=== PATIENT | male | born 1985 | race Hispanic/Latino ===

== ENCOUNTER 2017-12-26 17:25 | Emergency (ER) | payer OTHER ==
[2017-12-26 17:38] VITALS: BP 148/85; PULSE 83; RESP 16; TEMP 98.1; O2SAT 99
--- NOTE | 2017-12-26 18:33 | ED PDOC ---
Upper Extremity Pain/Injury Time Seen by Provider: 12/26/17 17:47 Chief Complaint (Nursing): Upper Extremity Problem/Injury Chief Complaint (Provider): Upper Extremity Problem/Injury History Per: Patient History/Exam Limitations: no limitations Onset/Duration Of Symptoms: Hrs Current Symptoms Are (Timing): Still Present Additional Complaint(s): Everett Mcgarry is a 32 year old male with no past medical history who is presenting to the ER with complaints of left wrist pain, onset earlier today. Patient states that he is right hand dominant but was playing two games of baseball today and was throwing with his left hand. He states that he has not played in a while but used to play regularly. Patient denies any trauma, injury , joint pain, decreased range of motion, or any other medical complaints. PMD: none provided Past Medical History Reviewed: Historical Data, Nursing Documentation, Vital Signs Vital Signs: Last Vital Signs Temp 98.1 F 12/26/17 17:36 Pulse 83 12/26/17 17:36 Resp 16 12/26/17 17:36 BP 148/85 12/26/17 17:36 Pulse Ox 99 12/26/17 17:36 - Medical History PMH: No Chronic Diseases - Family History Family History: States: Unknown Family Hx - Social History Current smoker - smoking cessation education provided: No Drugs: Denies - Allergies Allergies/Adverse Reactions: Allergies Allergy/AdvReac Type Severity Reaction Status Date / Time No Known Allergies Allergy Verified 12/26/17 17:36 Review of Systems ROS Statement: Except As Marked, All Systems Reviewed And Found Negative Constitutional: Negative for: Other (trauma or injury) Musculoskeletal: Positive for: Arm Pain (wrist). Negative for: Other ( decreased range of motion) Physical Exam - Reviewed Nursing Documentation Reviewed: Yes Vital Signs Reviewed: Yes - Physical Exam Comments: GENERAL APPEARANCE: Patient is awake, alert, oriented x 3, in no acute distress. SKIN: Warm, dry; (-) cyanosis. WRIST: (+) Mild Tenderness to left wrist; pain elicited to flexion and extension, (-) swelling, (-) ecchymosis (-) deformity, (-) snuff-box tenderness. Elbow, hand and digits: (-) tenderness. (+) radial pulses 2+. NEURO AND PSYCH: Mental status as above. - ECG O2 Sat by Pulse Oximetry: 99 (RA) Pulse Ox Interpretation: Normal Medical Decision Making Medical Decision Making: Time: 17:50 Impression : Wrist sprain, consider overuse syndrome. Plan: --X-Ray Left Wrist XR left wrist: Minimal amount of soft tissue swelling noted, no fracture, no dislocation, as read by ANDREA Patient advised that official radiology read of XR is still pending and will call the patient if there is any discrepancy within 24 hours. X-ray results discussed with the patient in great detail. Diagnosis of wrist pain likely due to overuse syndrome discussed with the patient in great detail. Advised to rest, ice, elevate the wrist. Cock-up splint applied to the wrist. Advised to follow up with primary care physician in 1-2 days without fail. Advised to take [id number] Motrin or Aleve as needed for pain. Return to the emergency room at any time for any new or worsening symptoms. Patient states he fully agrees with and understands discharge instructions. States that he agrees with the plan and disposition. Verbalized and repeated discharge instructions and plan. I have given the patient opportunity to ask any additional questions. Scribe Attestation: Documented by Ellyn Rodney, acting as a scribe for Anjali Llanos PA-C. Provider Scribe Attestation: All medical record entries made by the Scribe were at my direction and personally dictated by me. I have reviewed the chart and agree that the record accurately reflects my personal performance of the history, physical exam, medical decision making, and the department course for this patient. I have also personally directed, reviewed, and agree with the discharge instructions and disposition. Disposition - Clinical Impression Clinical Impression: Wrist pain, left - Patient ED Disposition Is Patient to be Admitted: No Counseled Patient/Family Regarding: Studies Performed, Diagnosis, Need For Followup, Rx Given - Disposition Referrals: Nikhil Lipscomb III, MD [Staff Provider] - Disposition: Routine/Home Disposition Time: 18:20 Condition: STABLE Additional Instructions: Thank you for letting us take care of you today. You were treated for left wrist pain, likely overuse syndrome. The emergency medical care you received today was directed at your acute symptoms. Rest, ice, elevate and rest. Wear splint for comfort. Take [id number] Motrin as needed for pain. It may take several days for your symptoms to resolve. Return to the Emergency Department if your symptoms worsen, do not improve, or if you have any other problems. Please contact your doctor in 2 days for re-evaluation and follow up / or call one of the physicians/clinics you have been referred to that are listed on the Patient Visit Information form that is included in your discharge packet. Bring any paperwork you were given at discharge with you along with any medications you are taking to your follow up visit. Our treatment cannot replace ongoing medical care by a primary care provider (PCP) outside of the emergency department. Thank you for allowing the [facility] team to be part of your care today. If you had an X-Ray : A Radiologist will review the ED reading if any change in treatment is needed we will contact you. Instructions: Wrist Sprain (DC) Forms: [facility] ([place]), [facility] School/Work Excuse - PA / COMMISSIONS ANALYST / Resident Statement / has reviewed & agrees with the documentation as recorded.
--- NOTE | 2017-12-27 07:34 | RAD ---
PROCEDURE: Left Wrist Radiographs. HISTORY: pain COMPARISON: None. FINDINGS: BONES: No acute fracture or destructive bony lesion identified, including the navicular bone. JOINTS: Normal. No dislocation. SOFT TISSUES: Normal. OTHER FINDINGS: None. IMPRESSION: Unremarkable left wrist radiographs.
== END 2017-12-26 18:34 | disposition home or self-care (01) ==
LOC: H.ER 17:25
DX: M25.532 Pain in left wrist (principal)